=== PATIENT | male | born 1990 ===

== ENCOUNTER 2017-12-21 15:07 | Emergency (ER) | payer BC ==
[2017-12-21 15:29] VITALS: BP 106/68; PULSE 107; RESP 20; TEMP 98.1; O2SAT 98
--- NOTE | 2017-12-21 16:12 | C.PDOC ---
History Of Present Illness 27-year-old male, presents to the emergency department with complaints of headache. Patient states he bumped his head on a wooden crib prior to arrival and sustained a laceration to the right eyebrow. Patient denies any vomiting, visual changes/eye injury. No numbness or weakness. Time Seen by Provider: 12/21/17 15:31 Chief Complaint (Nursing): Abnormal Skin Integrity History Per: Patient History/Exam Limitations: no limitations Current Symptoms Are (Timing): Still Present Past Medical History Reviewed: Historical Data, Nursing Documentation, Vital Signs Vital Signs: Last Vital Signs Temp 98.1 F 12/21/17 15:28 Pulse 107 H 12/21/17 15:28 Resp 20 12/21/17 16:34 BP 106/68 12/21/17 15:28 Pulse Ox 98 12/21/17 19:29 Family History: States: No Known Family Hx - Social History Hx Alcohol Use: No Hx Substance Use: No - Immunization History Hx Tetanus Toxoid Vaccination: No Hx Influenza Vaccination: No Hx Pneumococcal Vaccination: No Review Of Systems Eyes: Positive for: Other (right eyebrow laceration) Gastrointestinal: Negative for: Vomiting Neurological: Negative for: Weakness, Numbness Physical Exam - Physical Exam Appears: Non-toxic, No Acute Distress Skin: Warm, Dry, No Rash Head: Atraumatic, Normacephalic, Laceration ((+) 1cm laceration to the right eyebrow) Eye(s): bilateral: Normal Inspection, PERRL, EOMI Oral Mucosa: Moist Throat: No Erythema, No Exudate Neck: Normal ROM, No Midline Cervical Tenderness, No Paracervical Tenderness Chest: Symmetrical, No Tenderness Cardiovascular: Rhythm Regular Respiratory: Normal Breath Sounds Extremity: Normal ROM Neurological/Psych: Oriented x3, Normal Speech, Normal Cranial Nerves, Normal Motor, Normal Sensation Gait: Steady ED Course And Treatment O2 Sat by Pulse Oximetry: 98 (on RA) Pulse Ox Interpretation: Normal Progress Note: tetanus is up to date Laceration - Laceration Repair left eyebrow Wound Length (In cm): 1 Description Of Wound: Linear Wound Cleansed With: Betadine, Sterile Saline Wound Examination: Irrigated With Saline, No FB With Wound Exploration Wound Closure: Steri Strips, Skin Glue Suture Technique And Material Used: Interrupted Wound Complexity: Simple Disposition - Disposition Referrals: [facility] [Outside] Disposition: HOME/ ROUTINE Disposition Time: 16:09 Condition: GOOD Additional Instructions: Keep the wound clean and dry. Follow up with the medical doctor within 1-2 days. Return if worsened. Instructions: Laceration (DC), Skin Adhesive Care (ED) Forms: [employer] (Khmer) - Clinical Impression Clinical Impression: Eyebrow laceration - Scribe Statement The provider has reviewed the documentation as recorded by the Scribe (Lucero Villatoro) All medical record entries made by the Scribe were at my direction and personally dictated by me. I have reviewed the chart and agree that the record accurately reflects my personal performance of the history, physical exam, medical decision making, and the department course for this patient. I have also personally directed, reviewed, and agree with the discharge instructions and disposition.
== END 2017-12-21 16:34 | disposition home or self-care (01) ==
LOC: C.ER 15:07
DX: S01.112A Laceration without foreign body of left eyelid and periocular area, initial encounter (principal); W22.8XXA Striking against or struck by other objects, initial encounter; Y92.89 Other specified places as the place of occurrence of the external cause